=== PATIENT | female | born 1950 | race African-American/Black ===

== ENCOUNTER 2017-04-06 12:37 | Emergency (ER) | payer MEDICARE ==
[~2017-04-06 12:37] MED LIST: ACCUPRIL PO; ADVIL COLD & SI1 TA1 PO; ASPIRIN PO; BALANCE B; CALAN PO; CIPRO PO; EC-NAPROSYN500 MG PO; FOLIC ACID PO; GLYBURIDE PO; HCTZ PO; KCL PO; METFORMIN PO; MUCINEX DM1 TAB.SR . PO; PHENERGAN PO; PRENATAL MULITV1 TAB PO; PRILOSEC PO; VICODIN 5/500 T1 TAB PO
== END 2017-04-06 13:35 | disposition home or self-care (01) ==
LOC: CFTX 12:37 → CED 12:37 → CFTX 13:34
DX: L03.032 Cellulitis of left toe (principal); E11.9 Type 2 diabetes mellitus without complications; I10 Essential (primary) hypertension; F17.200 Nicotine dependence, unspecified, uncomplicated; Z23 Encounter for immunization; Z79.899 Other long term (current) drug therapy
CPT/HCPCS: 90471; 90715; 99283